=== PATIENT | female | born 1945 | race Caucasian/White ===

== ENCOUNTER → 2020-01-22 | Outpatient (CLI) | payer OTHER, MEDICARE ==
[~2020-01-22] MED LIST: ALLOPURINOL 10100 M1 PO; ASPIRIN325; AVAPRO75 MG; COSOPT EYE DROPS5 ML OP; EFFIENT10 MG PO; ELIDEL100 GM TP; FLAX SEED OIL1000 MG PO; FOLIC ACID0.8 MG PO; HUMALOG100 UNIT/1 SQ; IRON325; LANTUS; LASIX 20 MG TAB20 MG PO; LIPITOR20 MG PO; LOPRESSOR100 MG PO; MULTIVITAMINS1 EAC7 PO; NITROSTAT0.4 MG SL; NORVASC10 MG PO; PROTONIX40 M2 PO; SLOW-MAG64 MG PO; TRICOR145 MG PO; VANIQA60 GM TP; VITAMIN D1000 UNI1 PO
== END ==
LOC: SJCVCIMAG 09:55
DX: I65.23 Occlusion and stenosis of bilateral carotid arteries (principal); I45.2 Bifascicular block; R94.31 Abnormal electrocardiogram [ECG] [EKG]; I25.810 Atherosclerosis of coronary artery bypass graft(s) without angina pectoris; E78.5 Hyperlipidemia, unspecified; I12.9 Hypertensive chronic kidney disease with stage 1 through stage 4 chronic kidney disease, or unspecified chronic kidney disease; E11.22 Type 2 diabetes mellitus with diabetic chronic kidney disease; N18.3 Chronic kidney disease, stage 3 (moderate); E78.00 Pure hypercholesterolemia, unspecified; G47.33 Obstructive sleep apnea (adult) (pediatric); Z79.4 Long term (current) use of insulin; Z95.1 Presence of aortocoronary bypass graft; Z87.891 Personal history of nicotine dependence; Z79.899 Other long term (current) drug therapy

== ENCOUNTER 2020-07-27 15:21 | Inpatient (IN) | payer OTHER ==
[~2020-07-27] VITALS: Ht 154.9 cm; Wt 111.2 kg
[2020-07-27 15:29] VITALS: BP 132/63
[2020-07-27 15:55] LABS: ABSOLUTE NEUTROPHILS 10.9 thou/uL (1.4-8.2); BASOPHILS 0.8 % (0.0-2.0); EOSINOPHILS 1.4 % (0.0-3.0); HEMATOCRIT 37.7 % (37.0-47.0); HEMOGLOBIN 12.3 gm/dL (12.0-15.0); LYMPHOCYTES 6.9 % (24.0-44.0); MCHC 32.7 g/dL (28.0-37.0); MCV 91.6 fL (80.0-100.0); MONOCYTES 3.5 % (1.0-8.0); PLATELET COUNT 165 thou/uL (150-400); POLYS 87.4 % (36.0-66.0); RBC 4.11 mil/uL (4.20-5.00); RDW 16.1 % (10.5-14.5); WBC 12.4 thou/uL (4.0-11.0)
[2020-07-27 16:05] LABS: CALCIUM 9.9 mg/dL (8.5-10.1); CREATININE 2.1 mg/dL (0.6-1.0); POTASSIUM 4.3 mmol/L (3.5-5.1)
[2020-07-27 16:09] LABS: APTT 29.1 Seconds (24.5-32.8); PROTIME 9.8 Seconds (9.3-11.4)
[2020-07-27 16:15] LABS: ALBUMIN 4.1 g/dL (3.4-5.0); TOTAL BILIRUBIN 0.5 mg/dL (0.2-1.0); TOTAL PROTEIN 8.2 g/dL (6.4-8.2)
[2020-07-27 16:20] LABS: TROPONIN-I 14.06 ng/mL (<0.06)
[2020-07-27 17:04] VITALS: BP 120/69
[2020-07-27 17:48] VITALS: BP 135/52
[2020-07-27 18:10] VITALS: BP 134/61
[2020-07-27 20:30] VITALS: BP 129/42
[2020-07-28] VITALS (17 sets, daily range): BP systolic 117–1127; BP diastolic 46–67
[2020-07-28] MEDS ORDERED: TOPROL XL25 MG PO (02:50)
[2020-07-28] MEDS ORDERED: LEVEMIR100 UNIT/1 SUBQ ×2 (02:54→02:55)
[2020-07-28] MEDS ORDERED: ISOSORBIDE MONO60 M1 PO (02:58)
[2020-07-28] MEDS ORDERED: AVAPRO300 MG PO (02:59)
[2020-07-28] MEDS ORDERED: TORSEMIDE20 MG PO (03:00)
[2020-07-28] MEDS ORDERED: FAMOTIDINE 20 M20 MG PO (03:01)
[2020-07-28] MEDS ORDERED: PROTONIX40 M2 PO (03:02)
[2020-07-28] MEDS ORDERED: NOVOLOG100 UNIT/1 SUBQ ×2 (03:06→03:09)
--- NOTE | 2020-07-28 04:11 | NUR ---
assumed pt care at around 1920, pt is awake, alert and oriented x4, sr/bbb/1davb on the monitor, admission assessment as charted,medications given as per mar, fluids started, denies pain or sob, pt has redness on bilateral sheen and abdominal folds, denies having concerns, remains npo for heart cath in the morning, will continue to monitor
[2020-07-28 05:54] LABS: CREATININE 2.1 mg/dL (0.6-1.0); POTASSIUM 4.4 mmol/L (3.5-5.1)
[2020-07-28 06:25] LABS: TROPONIN-I 37.96 ng/mL (<0.06)
--- NOTE | 2020-07-28 07:36 | EKG ---
[facility] [place] [address] ELECTROCARDIOGRAM REPORT Name: COLTON MOORE Room #: 219-P ADM IN M.R.#: [id number] Admission: 07/27/20 Attend Phys: Yoan Ha MD, Discharge: Date of : 47 Report #: [id number] THIS REPORT FOR: cc: Dave Garvin MD, Richard MD Santiago,Mark [facility] ~ THIS REPORT FOR: //name// [facility] ED Test Date: 2020-07-27 Test Time: 15:37:41 Pat Name: COLTON MOORE Department: Room: 219 Gender: F Clerk Telegraph Service: ÁLVARO : 1945 Requested By: Mandy Melendez Order Number: [id number] MD: Mark Carranza Measurements Intervals [place] Rate: 84 P: 48 DC: 270 QRS: -66 QRSD: 152 T: 74 QT: 417 QTc: 493 Interpretive Statements Sinus rhythm Prolonged DC interval RBBB and LAFB Probable left ventricular hypertrophy Abnormal T, consider ischemia, lateral leads Compared to ECG 05/28/2012 07:38:08 First degree AV block now present Left anterior fascicular block now present T-wave abnormality now present Possible ischemia now present Sinus bradycardia no longer present Electronically Signed On 07-28-2020 7:36:41 CDT by Mark Carranza [email or web address] <ELECTRONICALLY SIGNED> By: Mark Carranza MD, [facility] 07/28/20 0736 1537 1537 Mark Carranza MD, [facility] /EPI
--- NOTE | 2020-07-28 10:19 | 2DMMODE ---
[facility] [place] [address] 2 D/M-MODE ECHOCARDIOGRAM Name: COLTON MOORE Room #: 219-P [facility] IN M.R.#: [id number] Admission: 07/27/20 Attend Phys: Yoan Ha MD, Discharge: Date of : 47 Report #: [id number] THIS REPORT FOR: cc: Dave Garvin MD, Richard MD Lammoglia, Francisco J. MD ~ APPROVED REPORT Study performed: 07/28/2020 07:14:21 EXAM: Comprehensive 2D, Doppler, and color-flow Echocardiogram Patient Location: Bedside Room #: 219 Status: routine BSA: 2.07 HR: 76 bpm BP: 137/54 mmHg Rhythm: NSR Other Information Study Quality: Adequate Indications Chest pain, NSTEMI. Hx: CABG, stent, HTN, HLP, DM, morbid obesity. 2D Dimensions RVDd: 33.38 mm IVSd: 13.49 (7-11mm) LVOT Diam: 21.16 (18-24mm) LVDd: 56.07 mm PWd: 13.09 (7-11mm) Ascending Ao: 33.66 (22-36mm) LVDs: 45.04 (25-40mm) Aortic Root: 34.84 mm Volumes Left Atrial Volume (Systole) Single Plane 4CH: 73.60 mL Single Plane 2CH: 72.65 mL LA ESV Index: 37.00 mL/m2 Aortic Valve AoV Peak Mundo.: 2.13 m/s AO Peak Gr.: 18.13 mmHg LVOT Max P.94 mmHg AO Mean Gr.: 9.93 mmHg AO V2 Mean: 1.51 m/s LVOT Max V: 0.99 m/s [facility] [place] [address] 2 D/M-MODE ECHOCARDIOGRAM Name: COLTON MOORE Donna Room #: 219-P [facility] IN ..#: [id number] Admission: 07/27/20 Attend Phys: Yoan Ha, Discharge: Date of : 47 Report #: [id number] AO V2 VTI: 48.68 cm SUAD Vmax: 1.64 cm2 Mitral Valve E/A Ratio: 1.1 MV Decel. Time: 177.10 ms MV E Max Mundo.: 1.34 m/s MV A Mundo.: 1.18 m/s MV PHT: 51.36 ms IVRT: 55.36 ms Pulmonary Valve PV Peak Mundo.: 1.13 m/s PV Peak Gr.: 5.13 mmHg Pulmonary Vein P Vein S: 0.47 m/s P Vein D: 1.01 m/s P Vein S/D Ratio: 0.47 Tricuspid Valve TR Peak Mundo.: 3.21 m/s RAP Estimate: 5.00 mmHg TR Peak Gr.: 41.29 mmHg PA Pressure: 46.00 mmHg Left Ventricle The left ventricle is normal size. Mild concentric left ventricular hypertrophy. Left ventricular systolic function is normal. LVEF is 50-55%. Moderate diastolic dysfunction is present (pseudonormal filling). Right Ventricle The right ventricle is normal size. The right ventricular systolic function is normal. Atria Left atrium is mildly dilated. The right atrium size is normal. Aortic Valve Aortic valve is moderately calcified. No aortic regurgitation is present. There is mild valvular aortic stenosis. Calculated aortic valve area is 1.6 cm2 with maximum pressure gradient of 18 mmHg and mean pressure gradient of 10 mmHg. Mitral Valve The mitral valve is normal in structure. Moderate mitral annular [facility] [address] [place] [address] 2 D/M-MODE ECHOCARDIOGRAM Name: COLTON MOORE Room #: 219-P [facility] IN .R.#: [id number] Admission: 07/27/20 Attend Phys: Yoan Ha, Discharge: Date of : 47 Report #: [id number] calcification. Moderate mitral regurgitation. No evidence of mitral valve stenosis. Tricuspid Valve The tricuspid valve is normal in structure. Mild to moderate tricuspid regurgitation. Estimated PAP is 45-50mmHg. Pulmonic Valve The pulmonary valve is normal in structure. Trace pulmonic regurgitation. Great Vessels The aortic root is normal in size. The ascending aorta is normal in size. IVC is normal in size and collapses >50% with inspiration. Pericardium There is no pericardial effusion. <Conclusion> The left ventricle is normal size. LVEF is 50-55%. Left atrium is mildly dilated. Aortic valve is moderately calcified. There is mild valvular aortic stenosis. Calculated aortic valve area is 1.6 cm2 with maximum pressure gradient of 18 mmHg and mean pressure gradient of 10 mmHg. The mitral valve is normal in structure. Moderate mitral annular calcification. Moderate mitral regurgitation. The tricuspid valve is normal in structure. Mild to moderate tricuspid regurgitation. Estimated PAP is 45-50mmHg. The pulmonary valve is normal in structure. Trace pulmonic regurgitation. There is no pericardial effusion. <ELECTRONICALLY SIGNED> By: Phil Maza MD 07/28/20 1019 1019 1019 Phil Maza MD /INF
--- NOTE | 2020-07-28 10:55 | EKG ---
[facility] [place] [address] ELECTROCARDIOGRAM REPORT Name: COLTON MOORE Room #: 219-P ADM IN M.R.#: [id number] Admission: 07/27/20 Attend Phys: Yoan Ha MD, Discharge: Date of : 46 Report #: [id number] THIS REPORT FOR: cc: Dave Garvin MD, Richard MD Lammoglia,Phil Bellamy MD ~ THIS REPORT FOR: //name// [facility] Test Date: 2020-07-28 Test Time: 07:55:33 Pat Name: COLTON MOORE Department: Room: 219 P Gender: F Gear Keeper: SILAS : 1945 Requested By: Yoan Ha Order Number: [id number] MD: Phil Maza Measurements Intervals [place] Rate: 71 P: -11 [place]: 215 QRS: -64 QRSD: 161 T: 30 QT: 474 QTc: 516 Interpretive Statements Sinus rhythm prolonged [place] interval RBBB and LAFB Compared to ECG 07/27/2020 15:37:41 No significant change Electronically Signed On 07-28-2020 10:54:48 CDT by Phil Maza [email or web address] <ELECTRONICALLY SIGNED> By: Phil Maza MD 07/28/20 1054 0755 0755 Phil Maza MD /EPI
--- NOTE | 2020-07-28 11:16 | NUR ---
PT UP TO BATHROOM SEVERAL TIMES THIS MORNING, PT NPO FOR CARDIAC CATH.
--- NOTE | 2020-07-28 18:18 | CATHLAB ---
[facility] [place] [address] INVASIVE PROCEDURE REPORT Name: COLTON MOORE Room #: 219-P ADM IN M.R.#: [id number] Admission: 07/27/20 Attend Phys: Yoan Ha MD, Discharge: Date of : 47 Report #: [id number] THIS REPORT FOR: cc: Dave Garvin MD, Richard MD Mancuso, Gerald M. MD [facility] ~ APPROVED REPORT Study performed: 07/28/2020 13:44:57 Patient Details Patient Status: In-Patient Room #: The patient is a 74 year-old female Event Personnel Yoan Ha Pipe Finisher, Tai Loomis RN, Monique Krishnamurthy McConnell, Jordan RTR Monitor, Zena Whitman RTR Monitor Procedures Performed Left Heart Cath Coronaries, Bypass Grafts 3841798 LHCCORCABG Art Access - R femoral artery* RAINE Place w/wo Plasty Single CIRC 765215 45068 Initial Mod Sed Same Phys/QHP Gr5y 123889 Hemostasis w/ Mynx 34300 Mod Sed Same Phys/QHP Ea 673214 Indication Chest pain Procedure Narrative The Right Groin^ was infiltrated with 1% Lidocaine subcutaneous anesthesia. A PINNACLE 6FR Sheath #[id number] sheath was inserted into the RFA^. Coronary angiography was performed using coronary diagnostic catheters. The right coronary system was accessed and visualized with a JR4 catheter. The left coronary system was accessed and visualized with a JL4 catheter. The left ventricle was accessed and visualized with a PIGTAIL catheter. Left ventriculogram was performed in 30 degree projection. Closure device was deployed with a Fr MYNXGRIP 6/7F #[id number]. The patient tolerated the procedure well and there were no complications associated with the procedure. There was no hematoma. The cannon graft was accessed and visualized with the JR4. Intraoperative Conscious Sedation Sedation start time: 16:07 Case end Time: [facility] [address] [place] [address] INVASIVE PROCEDURE REPORT Name: HOWARD MOOREUDY Room #: 219-P [facility] IN [facility]#: [id number] Admission: 07/27/20 Attend Phys: Yoan Ha, Discharge: Date of : 47 Report #: [id number] 17:28 Fentanyl 50 mcg Versed 1 mg Fluoro Time: 18.50 minutes Dose: DAP 53869.00 cGycm2 3861 mGy Contrast Type and Amount: Visipaque 110 ml Hemodynamics The aortic pressure is 143/63 mmHg with a mean of 91 mmHg. The left ventricular pressure is 148/11 mmHg with a mean of mmHg. The left ventricular end diastolic pressure is 29 mmHg. Pullback from the left ventricle to the aorta revealed no gradient across the aortic valve. PCI Technique Lesion Anticoagulation was achieved with Heparin. Percutaneous coronary intervention was performed on the proximal circumflex artery segment. A LAUNCHER 6FR EBU 3.5 #[id number] Guide Catheter was used to engage the CIRCUMFLEX ostium. A Luge Wire .014 x 182CM #[id number] Interventional Guidewire was used to cross the lesion. BALLOON DILATION A Balloon catheter Sprinter OTW 2.25 x 15 #[id number] was inserted and inflated up to 12.00atm for 33seconds. Additional Inflation: 18.00atm for 24seconds. Additional Inflation: 20.00atm for 24seconds. STENT DEPLOYMENT A stent RESOLUTE RHIANNA RX 2.75 X 12 #[id number] was inserted and inflated up to 16.00atm for 47seconds. Additional Inflation: 18.00atm for 28seconds. Conclusion 1. Successful PTCA stent of subtotal ostial circumflex artery proximal to previously placed stent with extension into the left main. 2.75 x 12 resolute [place] postdilated 2.9 mm OPAL grade III flow moderate disease in the more distal circumflex. Technically challenging due to calcification exchange of wires and deep seating of guide for eventual crossing of this lesion. #2 left main distal tapered narrowing of 30% giving rise to an occluded LAD and the circumflex as described above #3 LAD is proximally occluded and filled via CANNON graft. #4 the CANNON is a tortuous system and widely patent graft giving rise to the and supplying the LAD which is mildly diseased to the apex. No occlusive disease #5 the [place] right coronary artery occluded #6 SVG to the PDA is intact mid vessel tapered narrowing supplying [address] [address] INVASIVE PROCEDURE REPORT Name: COLTON MOORE Room #: 219-P [facility] IN M.R.#: [id number] Admission: 07/27/20 Attend Phys: Yoan Ha, Discharge: Date of : 47 Report #: [id number] the PDA and DONNA moderately diseased but no high-grade occlusive disease #7 SVG to OM occluded #8 normal left jugular size inferior basilar hypokinesis EF 45 to 50% range Recommendations and plan: Continue aggressive risk factor modification. Dual antiplatelet therapy will be continued. Transfer to CCU to follow post coronary stent protocol. <ELECTRONICALLY SIGNED> By: Yoan Ha MD, FACC 07/28/201817 17 17 Yoan Ha MD, FACC /INF
--- NOTE | 2020-07-28 18:24 | NUR ---
PT RETURNED FROM CARDIAC CATH, SITE CHECKED WITH FOUNDRY HELPER RN. FREQUENT VITALS SET UP.
--- NOTE | 2020-07-29 01:53 | NUR ---
UPON INITIAL ASSESSMENT NURSE NOTICED PATIENTS CATH SITE SWOLLEN, BRUISED AND OOZING SMALL AMOUNT OF BLOOD. NURSE APPLIED PRESSURE FOR AROUND 10 MINUTES AND CHANGED CATH DRESSING. PEDAL PULSES EQUAL BILATERALLY. PAIN AND SPASM MEDICATION PROVIDED PER DOCTOR ORDER. WHEN REASSESSING THE SITE PATIENT NOTED IT WAS STILL OOZING BLOOD AND SWOLLEN AREA WAS POSSIBLY A HEMATOMA. CALL PLACED TO PROVIDER WITH ORDERS RECEIVED FOR STRICT BED REST AND ULTRA SOUND OF GROUND IN THE MORNING. PATIENTS BLOOD PRESSURES HAVE BEEN STABLE THROUGHOUT SHIFT AND SITE APPEARS TO HAVE STOPPED LEAKING. GROIN SITE STILL SWOLLEN WITH RIGHT GROIN MORE FIRM THAN LEFT.
[2020-07-29 02:06] LABS: GLYCOHEMOGLOBIN (HGB A1C) 6.3 % (4.8-5.6)
[2020-07-29 04:02] VITALS: BP 135/60
--- NOTE | 2020-07-29 05:27 | NUR ---
PATIENT IS ADVANCING SLOWLY IN HER CARE PLAN. VITAL SIGNS STABLE WITH PATIENT HAVING NO COMPLAINTS OF NAUSEA. PATIENT DID COMPLAIN OF PAIN AT GROIN CATH SITE EARLY IN SHIFT WHICH WAS SUCCESSFULLY TREATED WITH MEDICATIONS AND REPOSITIONING. CATHETER SITE DOES SHOW SIGNS OF POSSIBLE HEMATOMA. PATIENT HAS BEEN KEPT ON BEDREST THROUGHOUT SHIFT WITH ORDERS OBTAINED FOR CT OF GROIN THIS MORNING. CATH SITE NO LONGER APPEARS TO BE OOZING BLOOD. CONTINUE PLAN OF CARE.
[2020-07-29 05:54] LABS: HEMATOCRIT 28.3 % (37.0-47.0); MCH 30.2 pg (26.0-34.0); MCHC 32.2 g/dL (28.0-37.0); MCV 93.9 fL (80.0-100.0); RBC 3.01 mil/uL (4.20-5.00); RDW 16.4 % (10.5-14.5); WBC 9.7 thou/uL (4.0-11.0)
[2020-07-29 06:04] LABS: HEMOGLOBIN 9.1 gm/dL (12.0-15.0)
[2020-07-29 06:45] LABS: ALBUMIN 2.7 g/dL (3.4-5.0); CALCIUM 8.4 mg/dL (8.5-10.1); CREATININE 1.8 mg/dL (0.6-1.0); POTASSIUM 4.8 mmol/L (3.5-5.1); TOTAL BILIRUBIN 0.5 mg/dL (0.2-1.0); TOTAL PROTEIN 5.7 g/dL (6.4-8.2)
[2020-07-29 06:48] LABS: TROPONIN-I 24.26 ng/mL (<0.06)
[2020-07-29 07:00] VITALS: BP 142/66
--- NOTE | 2020-07-29 08:26 | EKG ---
[facility] [place] [address] ELECTROCARDIOGRAM REPORT Name: COLTON MOORE Room #: 219- ADM IN M.R.#: [id number] Admission: 07/27/20 Attend Phys: Yoan Ha MD, Discharge: Date of : 47 Report #: [id number] THIS REPORT FOR: cc: Dave Garvin MD, Richard MD Couchonnal,Delon Huerta MD ~ THIS REPORT FOR: //name// [facility] Test Date: 2020-07-29 Test Time: 07:22:20 Pat Name: COLTON MOORE Department: Room: 219 P Gender: F Spa Consultant: SILAS : 1945 Requested By: Yoan Ha Order Number: [id number] MD: Delon Parr Measurements Intervals [place] Rate: 80 P: -6 WI: 242 QRS: -69 QRSD: 155 T: 34 QT: 447 QTc: 516 Interpretive Statements Sinus rhythm Prolonged [place] interval RBBB and LAFB Compared to ECG 07/28/2020 07:55:33 Electronically Signed On 07-29-2020 8:25:50 CDT by Delon Parr [email or web address] <ELECTRONICALLY SIGNED> By: Delon Parr MD 07/29/20824 1 1 Delon Parr MD /EPI
[2020-07-29] MEDS ORDERED: LIPITOR40 MG PO (08:30)
--- NOTE | 2020-07-29 09:00 | NUR ---
PT OFF FLOOR TO RADIOLOGY FOR INJECTION TO RIGHT GROIN.
--- NOTE | 2020-07-29 09:39 | H ---
[facility] [place] [address] HISTORY AND PHYSICAL Name: COLTON MOORE Room #: 219-P ADM IN M.R.#: [id number] Admission: 07/27/20 Attend Phys: Yoan Ha MD, Discharge: Date of : 47 Report #: [id number] THIS REPORT FOR: cc: Dave Garvin MD,Dave Ha,Yoan Figueroa MD [facility] ~ CC: Yoan Garvin DATE OF SERVICE: 07/27/2020 HISTORY OF PRESENT ILLNESS: The patient will be going to CCU. The patient is a 74-year-old female who has been followed by Dr. Garces for a number of years. She has stable coronary artery disease or has had a history of stable coronary artery disease with remote bypass in 1997, which was a CANNON to an LAD and SVG to a circumflex and an SVG to a PDA. Subsequently, in 2011, had a 2.5 x 18 and 2.5 x 15 proximal and mid circumflex stents placed. That was her last intervention. She has been having some stable anginal symptoms, but has been accelerating since January. She had the worst event this morning while at rest, making her somewhat diaphoretic and short of breath. This was on her way to her diabetic doctor in [place]. Subsequently, he had drawn an outpatient troponin, which was 13. She had been pain free since her arrival back home and this was just obtained. We instructed to go to the Emergency Room and her troponin here is 14. Creatinine 2.1, potassium 4.3. She is pain free and feels comfortable. She can feel some discomfort, particularly with anxiety. She has been a diabetic for 40 years. She remains independent with her . No syncope or presyncope, but a definite decrease in exercise tolerance. HOME MEDICATIONS: Allopurinol, amlodipine 10, aspirin, atorvastatin 20, chromium, flaxseed; recently started on a new insulin Levemir, NovoLog, irbesartan 300, Mag-Ox, metoprolol 25, Protonix, torsemide 20 and Imdur 60. PAST MEDICAL HISTORY: Positive for the coronary artery disease, bypass and stents as stated above; hypertension, hypercholesterolemia, diabetes for 40 years, some mild diabetic neuropathy; chronic kidney disease; thyroid nodules, which were negative on biopsy; pilonidal cyst, hip replacement, DJD. SOCIAL HISTORY: No alcohol or tobacco. She is , no children. FAMILY HISTORY: Mother had bypass in her 80s. ALLERGIES: PENICILLIN and TAPE ADHESIONS. REVIEW OF SYSTEMS: Negative except for stated above. PHYSICAL EXAMINATION: [address] [address] HISTORY AND PHYSICAL Name: COLTON MOORE Room #: 219-P [facility] IN M.R.#: [id number] Admission: 07/27/20 Attend Phys: Yoan Ha MD, Discharge: Date of : 47 Report #: [id number] GENERAL: She is pleasant, alert. She is in no distress. VITAL SIGNS: Pulse is 84, blood pressure 158/70. HEENT: Eyes reveal xanthelasmas. Pharynx is clear. NECK: Shows preserved upstrokes without JVD or bruits. LUNGS: Clear, slightly diminished in the bases. CARDIOVASCULAR: Distant heart tones, S1, S2. Holosystolic murmur is noted at the left sternal border. ABDOMEN: Obese, nontender. EXTREMITIES: Reveal 1+ edema. There are compression stockings on. I cannot palpate the distal pulses. NEUROLOGIC: Intact. MUSCULOSKELETAL: Generalized arthritic changes, valgus deformity of the knees bilaterally. SKIN: Warm and dry without xanthoma or ulcer. MUSCULOSKELETAL: As stated above. ASSESSMENT: 1. Non-ST elevation myocardial infarction with troponin of [address] depression, but no acute infarct. No recurrent chest pain. 2. Coronary artery disease with prior coronary artery bypass graft and stents as stated above. 3. Diabetes x 40 years. 4. Hypertension. 5. Hypercholesterolemia. 6. Degenerative joint disease. 7. Chronic kidney disease. RECOMMENDATIONS AND PLAN: IV fluids gently, nitro paste, beta robert, a repeat EKG, troponin and echo in the morning. We will proceed to the catheterization lab if I can get some improvement in the creatinine to delineate the anatomy and probable intervention. Risks, benefits, alternatives were discussed with the patient. We will also consult Endocrinology here to help manage her sugars. We will check hemoglobin A1c which was reportedly recently at 6.4. Thank you to assist in the care of this patient. <ELECTRONICALLY SIGNED> By: Yoan Ha MD, FACC 07/29/20 0939 1726 1740 Yoan Ha MD, FACC /nt
--- NOTE | 2020-07-29 09:50 | NUR ---
PT BACK TO ROOM FROM RADIOLOGY. BEDREST TO BE KEPT. REPEAT US TO BE DONE AROUND NOON. PT INFORMED. AT BEDSIDE
--- NOTE | 2020-07-29 11:47 | HC ---
[facility] [place] [address] CONSULTATION Name: COLTON MOORE Room #: 219-P ADM IN M.R.#: [id number] Admission: 07/27/20 Attend Phys: Yoan Ha MD, Discharge: Date of : 47 Report #: [id number] THIS REPORT FOR: cc: Dave Garvin MD,Jolene Harley MD, MD ~ CC: Yoan Garvin MD DATE OF SERVICE: 07/28/2020 ENDOCRINE CONSULTATION NOTE CONSULTING PHYSICIAN: Dr. Ha. REASON FOR CONSULTATION: Type 2 diabetes mellitus. HISTORY OF PRESENT ILLNESS: This is a 74-year-old female patient whose medical background is significant for multiple medical issues including type 2 diabetes mellitus as well as coronary artery disease. The patient presented to the ER with complaints of chest pain and the finding of elevated troponin when she had visited with Dr. Garvin right before this admission. The patient has had type 2 diabetes mellitus for several years and is maintained on a regimen of Levemir insulin 18 units in the morning and 24 units in the evenings as well as Humalog insulin taken at 18 units before breakfast and lunch and 27 units before supper. She describes an excellent level of blood glucose control without issues of hypoglycemia. Her reported hemoglobin A1c was most recently at 6.4%, but she could not recall when that exactly was done. The patient is not aware of issues pertaining to diabetic neuropathy, but she possibly has an element of diabetic retinopathy and follows routinely with her eye doctor. The patient is known to have CAD and has in the past undergone a CABG in 1997. Also, she is known to have mixed hyperlipidemia and is maintained on a combination of atorvastatin 20 mg daily as well as fenofibrate 145 mg daily. The patient is hypertensive and is maintained on Avapro, amlodipine, Lopressor with reported blood pressure control that is adequate. REVIEW OF SYSTEMS: CONSTITUTIONAL: Negative for major issues with fatigue, tiredness, fever, [facility] [address] [place] [address] CONSULTATION Name: COLTON MOORE Room #: 219-[facility] IN ..#: [id number] Admission: 07/27/20 Attend Phys: Yoan Ha MD, Discharge: Date of : 47 Report #: [id number] chills or body weight changes. HEENT: Negative for sore throat, sinus pain or ear drainage. PULMONARY: Negative for shortness of breath, cough or hemoptysis. CARDIAC: Noted for chest pain on presentation. Negative for syncope or presyncope, loss of consciousness, noted for occasional lower extremity edema. GASTROINTESTINAL: Negative for abdominal pain, nausea, vomiting. NEUROLOGY: Negative for loss of consciousness, severe frequent headaches or seizure activity. Otherwise, review of systems noncontributory other than those mentioned in HPI. PAST MEDICAL HISTORY: Noted for: 1. Type 2 diabetes mellitus. 2. Hypertension. 3. Mixed hyperlipidemia. 4. Osteoarthritis, status post bilateral knee replacement surgeries, 2003. 5. Carotid stenosis. 6. Coronary artery disease, status post coronary artery bypass graft in 1997. OUTPATIENT MEDICATIONS: Include Effient 10 mg daily, allopurinol 100 mg daily, aspirin 325 mg daily, Avapro 50 mg daily, folic acid 0.8 mg, Humalog insulin 18 units, 18 units, 27 units, Levemir insulin 18 units in the morning, 24 units in the evenings. Lasix 20 mg daily, atorvastatin, Lipitor 20 mg at bedtime, amlodipine 10 mg daily, Protonix daily, magnesium chloride 64 mg daily, metoprolol 100 mg b.i.d., TriCor 145 mg daily, vitamin D 1000 units daily, ____ 30 mg b.i.d., multivitamin daily, Elidel 30 mg t.i.d., ferrous sulfate 325 mg daily. ALLERGIES: PENICILLIN AND TAPE. FAMILY HISTORY: Noncontributory. SOCIAL HISTORY: The patient drinks alcohol only occasionally. Denies use of tobacco or illicit drugs. PHYSICAL EXAMINATION: GENERAL: Pleasant female patient sitting upright in a chair, appears comfortable, not in apparent distress. VITAL SIGNS: Blood pressure 134/53 mmHg, heart rate is 64 beats per minute, respiration 18 per minute, temperature 36.6 degrees Celsius. CONSTITUTIONAL: She is sitting upright in chair, appears comfortable, not in apparent distress. HEENT: Anicteric sclerae. Intact extraocular motions. NECK: Supple, without thyromegaly. CHEST: Noted for moderate air entry bilaterally with scattered rales. No wheeze or crackles. HEART: Regular rate and rhythm without murmurs or gallops. [address] [address] CONSULTATION Name: COLTON MOORE Donna Room #: 219-P [facility] IN ..#: [id number] Admission: 07/27/20 Attend Phys: Yoan Ha MD, Discharge: Date of : 47 Report #: [id number] ABDOMEN: Soft, lax. No tenderness or organomegaly. She has active bowel sounds. EXTREMITIES: Lower extremity exam is noted for trace ankle edema bilaterally. NEUROLOGIC: Awake, alert and oriented to time, place and person. The remainder of her examination is largely nonfocal. PSYCHIATRIC: Pleasant, interactive. Normal mood and affect. Normal thought process. LABORATORY RESULTS: Blood glucose on arrival was 210 and has since remained under 180 mg/dL. Sodium 142, potassium 4.4, chloride 106, CO2 of 27, anion gap 9, BUN 52, creatinine 2.1. AST 94, total bilirubin 0.5, calcium 9.0, alkaline phosphatase 89, ALT 33, total protein 8.2, albumin 4.1, EGFR 23. Troponin 37.96. INR 1.0. White blood count 12.4, hemoglobin 12.3, hematocrit 37.7, platelets 165. Hemoglobin A1c was ordered and is pending. ASSESSMENT AND PLAN: 1. Type 2 diabetes mellitus. The patient has an excellent baseline as per her reported blood glucose values and her reported hemoglobin A1c. A current hemoglobin A1c is processing. However, her recorded blood glucose values so far indicate a steady level of control at baseline. The patient has been n.p.o. today in preparation for coronary angiogram procedure and therefore has not received any insulin. She is currently only placed on a Humalog supplemental scale. I will go on to reinstate her basal bolus regimen however, at far more attenuated doses due to the expected gap in food consumption compared to her home environment. That said, I will place the patient for starters on Lantus insulin 12 units b.i.d. in addition to Humalog insulin 8 units with meals to be held if she does not eat or if she has a blood glucose under 100 mg/dL. I will maintain coverage with Humalog supplemental scale low intensity and continue to monitor her blood glucose a.c. and at bedtime and adjust her regimen as needed. 2. Hyperlipidemia. The patient is currently on atorvastatin therapy and fenofibrate therapy, she is to continue the same. 3. Hypertension. The patient's level of blood pressure control is adequate, she is to continue with the same. I certainly appreciate this consultation by Dr. Ha. <ELECTRONICALLY SIGNED> By: Jolene Keita MD 07/29/20 1147 [id number] [id number] Jolene Keita MD /nt
--- NOTE | 2020-07-29 14:30 | NUR ---
TALKED WITH ALEXANDRO ESQUIVEL. PT IS TO BE DISCHARGED HOME. COME TO THE [facility] OFFICE TOMORROW SO HER GROIN CAN BE SCANNED. PT UP AND TO THE BATHROOM WITH STANDBY ASSIST. TOLERATED WELL. SLOW BUT STEADY.
[2020-07-29] MEDS ORDERED: EFFIENT10 MG PO (14:34)
[2020-07-29 14:56] VITALS: BP 142/66
--- NOTE | 2020-07-29 15:00 | NUR ---
DISCHARGE INSTURCTIONS GONE OVER WITH AND PT IN THE ROOM. PT TAKEN OUT @ 1545 VIA WHEELCHAIR TO PRIVATE VEHICLE.
== END 2020-07-29 15:40 | disposition home or self-care (01) | DRG 246 ==
LOC: ER 15:21 → 2N 17:19 → EROBS 17:19 → 2N 17:48
PROVIDERS: Physician Assistant; ADMIT Internal Medicine Cardiovascular Disease; ATTEND Internal Medicine Cardiovascular Disease
DX: I21.4 Non-ST elevation (NSTEMI) myocardial infarction (principal); N17.0 Acute kidney failure with tubular necrosis; T82.857A Stenosis of other cardiac prosthetic devices, implants and grafts, initial encounter; Z20.828 Contact with and (suspected) exposure to other viral communicable diseases; Z96.653 Presence of artificial knee joint, bilateral; E78.2 Mixed hyperlipidemia; M19.90 Unspecified osteoarthritis, unspecified site; I65.29 Occlusion and stenosis of unspecified carotid artery; E78.00 Pure hypercholesterolemia, unspecified; E11.40 Type 2 diabetes mellitus with diabetic neuropathy, unspecified; N18.9 Chronic kidney disease, unspecified; I72.4 Aneurysm of artery of lower extremity; E11.22 Type 2 diabetes mellitus with diabetic chronic kidney disease; I12.9 Hypertensive chronic kidney disease with stage 1 through stage 4 chronic kidney disease, or unspecified chronic kidney disease; I08.3 Combined rheumatic disorders of mitral, aortic and tricuspid valves; Z95.1 Presence of aortocoronary bypass graft; Z88.0 Allergy status to penicillin; Z95.5 Presence of coronary angioplasty implant and graft; Z82.49 Family history of ischemic heart disease and other diseases of the circulatory system; Z79.82 Long term (current) use of aspirin; Z79.899 Other long term (current) drug therapy; Y83.2 Surgical operation with anastomosis, bypass or graft as the cause of abnormal reaction of the patient, or of later complication, without mention of misadventure at the time of the procedure; Y92.89 Other specified places as the place of occurrence of the external cause
CPT/HCPCS: 10081

== ENCOUNTER → 2020-07-30 | Outpatient (CLI) | payer OTHER ==
[~2020-07-30] MED LIST changes: +AVAPRO300 MG PO; +FAMOTIDINE 20 M20 MG PO; +ISOSORBIDE MONO60 M1 PO; +LEVEMIR100 UNIT/1 SUBQ; +LIPITOR40 MG PO; +NOVOLOG100 UNIT/1 SUBQ; +TOPROL XL25 MG PO; +TORSEMIDE20 MG PO
--- NOTE | 2020-07-30 12:02 | NUR ---
PT BROUGHT TO HOLDING RM 5 AT [address] [facility] OFFICE. PT HAD PSEUDO ANEURYSM WHICH WAS INJECTED IN [facility] OFFICE. HERE FOR MONITORING AND OBSERVATION RT GROIN WITH GAUZE AND TRANSPARENT DRESSING - CLEAN DRY INTACT NO HARDNESS. GENERALIZED ECCHYMOSIS AND MILD SWELLING TO RT GROIN AREA. HR 53. BP 122/77
--- NOTE | 2020-07-30 12:32 | NUR ---
PT DOZING IN ROOM, VSS, NO INCREASE IN SWELLING TO RT GROIN
--- NOTE | 2020-07-30 13:53 | NUR ---
PT RESTING QUIETLY. ATE LUNCH. VSS. AT BEDSIDE. NO INCREASE IN SWELLING TO RT GROIN. CONTINUES TO HAVE GENERALIZED SWELLING AND ECCHYMOSIS.
--- NOTE | 2020-07-30 16:06 | NUR ---
PT DC'D PER WHEELCHAIR BY RN AT 1600. VSS. HR 68; BP 144/51; R16. NO INCREASE IN SIZE OF SWELLING TO RT GROIN. CONTINUES TO HAVE GENERALIZED SWELLING AND ECCHYMOSIS TO RT GROIN. NO BLEEDING WHILE HERE. DC'D WITH CLEAN DRY DRESSING INTACT. PT RETURNING TO OFFICE ON SUNDAY AT 0830 FOR ULTRASOUND. PT AND VERBALIZE UNDERSTANDING OF INSTRUCTIONS TO WATCH GROIN FOR INCREASE SWELLING. OR PAIN OR ANY CHANGES AND TO NOTIFY DR OF ANY CHANGES.
== END ==
LOC: SJCVCIMAG 06:54
PROVIDERS: ATTEND Internal Medicine
DX: T81.718A Complication of other artery following a procedure, not elsewhere classified, initial encounter (principal); I72.9 Aneurysm of unspecified site; Z87.891 Personal history of nicotine dependence

== ENCOUNTER → 2020-08-02 | Outpatient (CLI) | payer OTHER | LOC: SJCVCIMAG 08:22 | PROVIDERS: ATTEND Internal Medicine Cardiovascular Disease | DX: R10.30 Lower abdominal pain, unspecified (principal); Z86.79 Personal history of other diseases of the circulatory system ==

== ENCOUNTER → 2020-08-18 | Outpatient (CLI) | payer OTHER | LOC: SJCVC 14:05 | PROVIDERS: ATTEND Internal Medicine | DX: I44.0 Atrioventricular block, first degree (principal); I45.10 Unspecified right bundle-branch block; R94.31 Abnormal electrocardiogram [ECG] [EKG]; E78.5 Hyperlipidemia, unspecified; I65.23 Occlusion and stenosis of bilateral carotid arteries; G47.33 Obstructive sleep apnea (adult) (pediatric); I12.9 Hypertensive chronic kidney disease with stage 1 through stage 4 chronic kidney disease, or unspecified chronic kidney disease; E11.22 Type 2 diabetes mellitus with diabetic chronic kidney disease; N18.30 Chronic kidney disease, stage 3 unspecified; E78.00 Pure hypercholesterolemia, unspecified; I25.810 Atherosclerosis of coronary artery bypass graft(s) without angina pectoris; Z79.4 Long term (current) use of insulin; Z95.1 Presence of aortocoronary bypass graft; Z79.82 Long term (current) use of aspirin; Z87.891 Personal history of nicotine dependence; Z79.899 Other long term (current) drug therapy ==

== ENCOUNTER → 2021-02-25 | Outpatient (CLI) | payer OTHER | LOC: SJCVCIMAG 02-17 07:26 | PROVIDERS: ATTEND Internal Medicine | DX: I65.23 Occlusion and stenosis of bilateral carotid arteries (principal); R94.31 Abnormal electrocardiogram [ECG] [EKG]; I45.4 Nonspecific intraventricular block; I25.10 Atherosclerotic heart disease of native coronary artery without angina pectoris; E78.5 Hyperlipidemia, unspecified; I35.0 Nonrheumatic aortic (valve) stenosis; E11.22 Type 2 diabetes mellitus with diabetic chronic kidney disease; I12.9 Hypertensive chronic kidney disease with stage 1 through stage 4 chronic kidney disease, or unspecified chronic kidney disease; N18.30 Chronic kidney disease, stage 3 unspecified; G47.33 Obstructive sleep apnea (adult) (pediatric); Z95.5 Presence of coronary angioplasty implant and graft; Z95.1 Presence of aortocoronary bypass graft; Z98.890 Other specified postprocedural states; Z88.0 Allergy status to penicillin; Z79.82 Long term (current) use of aspirin; Z79.4 Long term (current) use of insulin; Z79.899 Other long term (current) drug therapy; Z87.891 Personal history of nicotine dependence; Z82.49 Family history of ischemic heart disease and other diseases of the circulatory system ==

== ENCOUNTER → 2021-10-28 | Outpatient (CLI) | payer OTHER | LOC: SJCVCIMAG 09-23 07:39 | PROVIDERS: ATTEND Internal Medicine | DX: R94.31 Abnormal electrocardiogram [ECG] [EKG] (principal); I08.8 Other rheumatic multiple valve diseases; I45.2 Bifascicular block; I65.23 Occlusion and stenosis of bilateral carotid arteries; I25.10 Atherosclerotic heart disease of native coronary artery without angina pectoris; I12.9 Hypertensive chronic kidney disease with stage 1 through stage 4 chronic kidney disease, or unspecified chronic kidney disease; E11.22 Type 2 diabetes mellitus with diabetic chronic kidney disease; N18.32 Chronic kidney disease, stage 3b; E78.5 Hyperlipidemia, unspecified; G47.33 Obstructive sleep apnea (adult) (pediatric); Z79.4 Long term (current) use of insulin; Z79.82 Long term (current) use of aspirin; Z79.899 Other long term (current) drug therapy; Z87.891 Personal history of nicotine dependence; Z95.1 Presence of aortocoronary bypass graft ==